=== PATIENT | male | born 1990 | race Hispanic/Latino ===

== ENCOUNTER 2023-06-06 17:49 | Emergency (ER) | payer OTHER, SELFPAY ==
[2023-06-06 17:55] VITALS: BP 121/72; PULSE 47; RESP 16; TEMP 37.1; O2SAT 100; BMI 25.1
--- NOTE | 2023-06-06 17:59 | DI.RAD.S_ITS ---
PROCEDURE: XR KNEE RT 3V INDICATIONS: knee pain, twisting injury, medial joint line pain TECHNIQUE: 3 views of the knee were acquired. COMPARISON: None. FINDINGS: Bones: No acute fractures or dislocations. No suspicious bony lesions. Soft tissues: Small joint effusion. No suspicious soft tissue calcifications. IMPRESSION: No acute osseous abnormality. If clinical suspicion and/or symptoms persist, additional imaging with repeat plain films, or advanced imaging (e.g. CT, MRI) may be helpful for further assessment. Approved by: Tc Jasso M.D. on 06/06/2023 at 19:34
--- NOTE | 2023-06-06 18:11 | ED.LOWEXIN ---
HPI - Extremity Injury (Lower) General Chief Complaint: Extremity Injury, Lower Stated Complaint: CHECK OUT KNEE POSSIBLY TORE SOMETHING Time Seen by Provider: 06/06/23 17:59 Source: patient Mode of arrival: Ambulatory History of Present Illness HPI Narrative: 32-year-old male nonsmoker with noncontributory medical history presents with his own crutches and a hinged knee brace after an injury earlier today. He was out for a trail run when his right foot caught a rock which caused him to fall in a twisting motion and he immediately felt pain. He denies any direct impact of his knee on any from objects. He now has pain with swelling on the medial aspect of his knee. He states that when he walks it feels unstable. He denies any other injury. He has no numbness or tingling. He denies history of the same. Related Data Allergies Allergy/AdvReac Type Severity Reaction Status Date / Time No Known Drug Allergies Allergy Verified 06/06/23 17:54 Review of Systems Review of Systems Narrative: GENERAL: Denies chills, fatigue, malaise, fever, sweats. HEENT: Denies sinus pain, ear pain, sore throat, difficulty swallowing, dizziness. RESPIRATORY: Denies dyspnea, cough, wheezing, hemoptysis, sputum. CARDIOVASCULAR: Denies chest pain, palpitations, orthopnea, edema, GASTROINTESTINAL: Denies nausea, vomiting, abdominal pain, diarrhea, constipation, melena. : Denies dysuria, frequency, incontinence, hematuria, urinary retention. MUSCULOSKELETAL: See HPI SKIN: Denies rash, skin lesions, or other NEUROLOGIC: Denies weakness, headache, numbness, change in speech, confusion, seizures, incoordination. PSYCHIATRIC: No concerning psychosocial issues. 12 point review of systems is negative except for those stated above Patient History Social History Smoking Status: Never smoker Smoking Status: Never smoker Substance Use Type: does not use Exam Narrative Exam Narrative: GEN: AOx3 and in mild distress EYES: Pupils are equal, round, and reactive to light and accommodation. Extraoccular muscles are intact bilaterally. There is no subconjunctival hemorrhage or exudate. CHEST: Lungs are clear to auscultation bilaterally and free of wheezes, rales, or rhonchi. Heart rate is regular rhythm, there are no murmurs, clicks, rubs, or gallops. There is no chest wall tenderness. ABD: Abdomen is soft and nontender. There is no guarding or rebound. Bowel sounds are normal in all 4 quadrants. There is no mass or organomegaly. EXT: Right knee with minimal swelling medially, no notable pain on the medial joint line, no lateral joint line or patellar pain. There is some medial ligamentous laxity which is concerning for MCL injury. No obvious pain with Josefa's test SKIN: Warm, pink, and dry. No erythema or rash Initial Vital Signs Initial Vital Signs: Vital Signs Temperature 98.7 F 06/06/23 17:55 Pulse Rate 47 L 06/06/23 17:55 Respiratory Rate 16 06/06/23 17:55 Blood Pressure 121/72 06/06/23 17:55 Pulse Oximetry 100 06/06/23 17:55 Oxygen Delivery Method Room Air 06/06/23 17:55 Procedures Orthopedic Splinting/Casting Injury #1: Side: right Lower Extremity Injury Location: knee Lower Extremity Immobilizer: knee immobilizer Other Orthopedic Equipment: crutches Post splinting neuro exam: intact Post splinting vascular exam: intact Placed by: Nursing Course Orders Ordered: ED Orders 06/06/23 17:59 XR knee RT 3V Stat Vital Signs Vital signs: Vital Signs - 8 hr 06/06/23 17:55 Temperature 98.7 F Pulse Rate 47 L Respiratory Rate 16 Blood Pressure 121/72 Pulse Oximetry 100 Oxygen Delivery Method Room Air MDM - Extremity Injury (Lower) MDM Narrative Medical decision making narrative: [32] year old patient presents with right knee pain from twisting injury Multiple etiologies for patient's symptoms considered including, but not limited to: [Ligamentous injury versus fracture versus dislocation versus other] Prior Charts reviewed in our EMR Primary Historian: patient Imaging reviewed: Knee x-ray demonstrates no acute osseous injury Patient's symptoms improved over duration of stay with above-stated therapies. Findings and discharge diagnosis discussed with patient/family followed by verbalization of understanding Return precautions discussed with patient/family whom verbalize understanding of diagnosis and plan Discharge Plan Departure Patient Disposition: Home Clinical Impression: Acute internal derangement of right knee Instructions: DI for Knee Pain Activity Restrictions/Additional Instructions: *You have been diagnosed with [right knee injury, most consistent with ligamentous injury. As we discussed your history and physical exam are suggestive of a possible MCL or medial meniscus injury. X-ray did not show any obvious fracture or dislocation] *What to do: *Please continue to take your regular medications as directed. [ ] New medication prescriptions sent to your pharmacy: [ ] [ ] New medication written as a paper prescription [ ] No new medications given *Please follow up with Dr. Mendes at [facility], call for an appointment. Let them know you were seen in the Emergency Department and that we ask that you be seen in follow up. NO WEIGHT BEARING until you follow up with either your doctor or ortho *If you do not have a primary care provider please contact the [facility] Resource line at [phone]. They will ask some questions about your medical history and help get you set up with a doctor in the community. *Return to Emergency Department if you should have any new, worsening or concerning symptoms, such as [fever greater than 101 F, shaking chills, worsening pain, persistent vomiting or other bothersome symptoms] Referrals: Sienna Mendes MD [Physician] - Stand Alone Forms: Patient Portal/API, Work Release Note
[2023-06-06 19:51] VITALS: BP 108/68; PULSE 60; RESP 14; O2SAT 99
== END 2023-06-06 19:52 | disposition home or self-care (01) ==
PROVIDERS: Emergency Provider Emergency Medicine
DX: M23.91 Unspecified internal derangement of right knee (principal)
CPT/HCPCS: 73562; 99283